=== PATIENT | male | born 1975 | race Two or more races ===

== ENCOUNTER 2021-11-17 13:33 | Emergency (ER) | payer OTHER ==
[~2021-11-17] VITALS: Ht 170.2 cm; Wt 106.7 kg
--- NOTE | 2021-11-17 13:54 | RAD ---
EXAM: Right hand, 3 views. HISTORY: Blunt trauma. COMPARISON: None. FINDINGS: 3 views of the right hand are obtained. There is no acute fracture, dislocation or subluxat ion. There is no radiodense foreign body. IMPRESSION: No acute osseous finding. Electronically signed by: Clemencia Bonilla MD (11/17/2021 1:51 PM) [id number]
--- NOTE | 2021-11-17 14:10 | PHYS DOC ---
Past History Past Surgical History: Other Additional Past Surgical Histo: knee; nose; throat (MARILEE ANDERSON APRN) Alcohol Use: None (MARILEE ANDERSON APRN) Adult General Chief Complaint Chief Complaint: THUMB HPI HPI Patient is a 46-year-old male who presents emergency department reporting his prior to arrival while he was at work he smashed his right thumb under a pallet bing. Patient reports he put ice on his thumb and came to emergency department for evaluation. Has not taken any medications for pain, reports a 3-4 out of 10 throbbing pain. Denies other injury. Reports his last tetanus immunization was greater than 5 years ago. Denies other physical complaints or physical concerns. (MARILEE ANDERSON APRN) Review of Systems Review of Systems 14 body systems of review of systems have been reviewed. See HPI for pertinent positives and negative responses, otherwise all other systems are negative, nonpertinent or noncontributory. Constitutional: Negative except as outlined in HPI above. Skin: Negative except as outlined in HPI above. Eyes: Negative except as outlined in HPI above. HENT: Negative except as outlined in HPI above. Respiratory: Negative except as outlined in HPI above. Cardiovascular: Negative except as outlined in HPI above. GI: Negative except as outlined in HPI above. : Negative except as outlined in HPI above. Musculoskeletal: Negative except as outlined in HPI above. Integument: Negative except as outlined in HPI above. Neurologic: Negative except as outlined in HPI above. Endocrine: Negative except as outlined in HPI above. Lymphatic: Negative except as outlined in HPI above. Psychiatric: Negative except as outlined in HPI above. (MARILEE ANDERSON APRN) Allergies Allergies Allergies Coded Allergies Type Severity Reaction Last Updated Verified No Known Drug Allergies 11/17/21 No (MARILEE ANDERSON APRN) Physical Exam Physical Exam Constitutional: Well developed, well nourished, no acute distress, non-toxic appearance. 46-year-old male is holding right thumb with left hand otherwise in no apparent distress. HENT: Normocephalic, atraumatic. Eyes: Conjunctiva normal, no discharge. Neck: Normal range of motion, no stridor. Cardiovascular: No cyanosis appreciated, distal cap refill less than 2 seconds. Lungs & Thorax: Patient is in no respiratory distress, no audible adventitious lung sounds appreciated. Abdomen: Nontender, no abnormalities noted. Skin: Warm, dry, no erythema, no rash. See extremity note for focused skin examination. Back: No tenderness, no deformities. Extremities: No tenderness, no cyanosis, no clubbing, ROM intact, no edema. Except for right thumb, abrasion to lateral aspect near cuticle, no bleeding appreciated, no deformity appreciated, limited passive range of motion related to pain. No crepitus appreciated. Distal cap refill is less than 2 seconds. 2+ bilateral radial pulses. No swelling appreciated. Neurologic: Alert and oriented X 3, normal motor function, normal sensory function, no focal deficits noted. Psychologic: Affect normal, judgement normal, mood normal. (MARILEE ANDERSON APRN) Current Patient Data Vital Signs Vital Signs Date Time Temp Pulse Resp B/P (MAP) Pulse Ox O2 Delivery O2 Flow Rate FiO2 11/17/21 13:45 97.7 81 18 138/85 (102) 99 Room Air (MARILEE ANDERSON APRN) EKG EKG [] (MARILEE ANDERSON APRN) Radiology/Procedures Radiology/Procedures STATUS: REG ER ORD. PHYSICIAN: MARILEE ANDERSON APRN REASON: Crush trauma thumb PROCEDURE: HAND RIGHT 3V EXAM: Right hand, 3 views. HISTORY: Blunt trauma. COMPARISON: None. FINDINGS: 3 views of the right hand are obtained. There is no acute fracture, dislocation or subluxation. There is no radiodense foreign body. IMPRESSION: No acute osseous finding. Electronically signed by: Clemencia Bonilla MD (11/17/2021 1:51 PM) [id number] (MARILEE ANDERSON APRN) Heart Score C/O Chest Pain: No Risk Factors: Risk Factors: DM, Current or recent (<one month) smoker, HTN, HLP, family history of CAD, obesity. Risk Scores: Risk Factors: DM, Current or recent (<one month) smoker, HTN, HLP, family history of CAD, obesity. (MARILEE ANDERSON APRN) Course & Med Decision Making Course & Med Decision Making Pertinent Labs and Imaging studies reviewed. (See chart for details) 46-year-old male, vital signs reviewed, presents for department concerning right thumb injury after a pallet bing smashed his thumb just prior to arrival to ER. Physical examination concerning for possible underlying bony injury, does have abrasion, will bring tetanus immunization up-to-date with Tdap medication, patient denies need for pain medication, ice packs have been applied. Will order x-ray of right hand attention thumb. X-ray nonconcerning for acute bony fracture. Discussed with patient daily cleansing and abrasion care, ice packs 30 minutes on 30 minutes off while awake for the next 48 to 72 hours, discussed with patient tetanus immunization has been brought up-to-date. Strict follow-up with primary care for ongoing sympto ms, return ER precautions and concerns were reviewed, patient gave verbal understanding of and is amenable to ED discharge planning. Discussed with the patient all findings and diagnostic testing as well as the need to follow-up with their primary care provider for further evaluation and treatment or return to the ED if any new or worsening symptoms. Strict return precautions were also discussed at length, the patient voiced understanding and agreement with the discharge planning. The patient was nontoxic in appearance, in no apparent distress, and hemodynamically stable at the time of disposition. (MARILEE ANDERSON APRN) Course & Med Decision Making I was the Attending physician on the above date of service of this patient. This patient was evaluated, examined, treated, and dispositioned from the emergency department by the mid-level practitioner. Although I was working at the time , no assistance was requested. Electronically signed, Jeremy Judd DO (JEREMY JUDD DO) Frantz Disclaimer Frantz Disclaimer This electronic medical record was generated, in whole or in part, using a voice recognition dictation system. (MARILEE ANDERSON APRN) Departure Departure: Impression: Primary Impression: Contusion of right thumb Disposition: 01 HOME / SELF CARE / HOMELESS Condition: GOOD Referrals: PCP,NO (PCP) Patient Instructions: Contusion Additional Instructions: You were seen today in the emergency department after smashing your thumb under a pallet bing. The x-ray did not show any concerning findings of fracture, there is a small skin abrasion to your thumb, as we discussed please cleanse daily and apply antibiotic ointment and Band-Aid until healed. Your tetanus immunization was brought up-to-date today in the emergency department with a medication called Tdap, please update your immunization records accordingly. As we discussed please apply ice to your thumb to help prevent swelling and increased pain, please use 30 minutes on and 30 minutes off while awake for the next 48-72 hours. Follow-up with your primary care physician for ongoing pain management. Thank you for visiting our Emergency Department. It was a pleasure taking care of you today in the emergency department and we appreciate you trusting us with your care. If any additional problems come up don't hesitate to return to visit us. Please follow up with your primary care provider so they can plan additional care if needed and know about the problem that you had. If symptoms worsen come back to the Emergency Department. Any concerning symptoms that start such as chest pain, shortness of air, weakness or numbness on one side of the body, running high fevers or any other concerning symptoms return to the ER. If you do not have a primary care provider, you may consider using the [facility] located at [facility] [place] [address] [place] [address], other telephone number is area code [phone]. EMERGENCY DEPARTMENT GENERAL DISCHARGE INSTRUCTIONS Thank you for coming to [facility] (ED) today and trusting us with you care. We trust that you had a positivie experience in our Emergency Department. If you wish to speak to the department management, you may call the director at [phone]. YOUR FOLLOW UP INSTRUCTIONS ARE FOLLOWS: 1. Do you have a private Doctor? If you do not have a private doctor, please ask for a resource list of physicians or clinics that may be able to assist you with follow up care. 2. The Emergency Physician has interpreted your x-rays. The X-Ray specialist will also review them. If there is a change in the findings, you will be notified in 48 hours when at all possible. 3. A lab test or culture has been done, your results will be reviewed and you will be notified if you need a change in treatment. ADDITIONAL INSTRUCTIONS AND INFORMATION: 1. Your care today has been supervised by a physician who is specially trained in emergency care. Many problems require more than one evaluation for a complete diagnosis and treatment. We recommend that you schedule your follow up appointment as recommended to ensure complete treatment of you illness or injury. If you are unable to obtain follow up care and continue to have a problem, or if your condition worsens, we recommend that you return to the ED. 2. We are not able to safely determine your condition over the phone nor are we able to give sound medical advice over the phone. For these safety reasons, if you call for medical advice we will ask you to come to the ED for further evaluation. 3. If you have any questions regarding these discharge instructions please call the ED at [phone]. SAFETY INFORMATION: In the interest of safety, wellness, and injury prevention; we encourage you to wear your sealbelt, if you smoke; quite smoking, and we encourage family to use a protective helmet for bicycling and other sporting events that present an increased risk for head injury. IF YOUR SYMPTOMS WORSEN OR NEW SYMPTOMS DEVELOP, OR YOU HAVE CONCERNS ABOUT YOUR CONDITION; OR IF YOUR CONDITION WORSENS WHILE YOU ARE WAITING FOR YOUR FOLLOW UP APPOINTMENT; EITHER CONTACT YOUR PRIMARY CARE DOCTOR, THE PHYSICIAN WHOSE NAME AND NUMBER YOU WERE GIVEN, OR RETURN TO THE ED IMMEDIATELY. Problem Qualifiers Primary Impression: Contusion of right thumb Encounter type: initial encounter Damage to nail status: without damage Qualified Codes: S60.011A - Contusion of right thumb without damage to nail, initial encounter MARILEE ANDERSON APRN Nov 17, 2021 14:10 JEREMY JUDD DO Nov 18, 2021 08:02
[2021-11-17] MEDS ORDERED: BACITRACIN ZINC TOPICAL OINT PACKET. TP ONE (14:15)
[2021-11-17] MEDS ORDERED: DIPHTH,PERTUSS(ACELL),TET TOX 0.5 ML DISP.SYRIN. VAX IM ONE (14:15)
[2021-11-17 14:35] VITALS: BP 134/81
== END 2021-11-17 14:35 | disposition home or self-care (01) ==
LOC: ER 13:33
DX: S60.011A Contusion of right thumb without damage to nail, initial encounter (principal); W23.0XXA Caught, crushed, jammed, or pinched between moving objects, initial encounter; Y93.89 Activity, other specified; Y92.89 Other specified places as the place of occurrence of the external cause; Y99.8 Other external cause status
CPT/HCPCS: 73130; 90471; 90715; 99283